=== PATIENT | female | born 1960 | race Caucasian/White ===

== ENCOUNTER → 2018-01-01 | Outpatient (CLI) | payer BC ==
--- NOTE | 2018-01-01 18:44 | Diagnostic Imaging Report ---
PROCEDURE: CT CHEST WITHOUT CONTRAST CT scan of the chest WITHOUT intravenous contrast, using standard protocol. TECHNIQUE: The chest was scanned utilizing a multidetector helical scanner from the apex to the level of the adrenal glands. No IV contrast was administered per physician's request. Coronal and sagittal multiplanar reformations were obtained. COMPARISON: None. INDICATIONS: COPD. SHORTNESS OF BREATH, SMOKER FINDINGS: Lines/tubes: None. Lungs and Airways: Moderate to marked centrilobular emphysematous changes, worse in the upper lobes. Multiple bilateral calcified granulomas, with the largest located in the superior segment of the right lower lobe and measuring 0.7 cm. No pulmonary nodules, masses, or consolidation. Focal scarring and associated bronchiectasis in the lateral lingula (series 3, image 97). Airways are clear, without endobronchial lesions. Pleura: No effusion, or pneumothorax. Heart and mediastinum: Thyroid is unremarkable. Heart size is normal. No pericardial effusion. Aorta is non-aneurysmal. Main pulmonary artery is normal in caliber. Atherosclerotic calcification of the coronary arteries and thoracic aortic arch. Lymph nodes: Multiple calcified mediastinal and bilateral hilar lymph nodes. No mediastinal, hilar, or axillary adenopathy. Abdomen: Limited views of the upper abdomen show no abnormality within the visualized liver, pancreas, or left kidney. Multiple calcified splenic granulomas. Visualized portions of the adrenal glands are normal. Bones: No aggressive lytic lesions. Mild degenerative disc changes in the thoracic spine. Bilateral breast implants. Partially visualized anterior fusion hardware in the lower cervical spine. IMPRESSION: 1. moderate to marked centrilobular emphysematous changes, worse in the upper lobes. No consolidation, pulmonary nodules or masses. 2. Multiple pulmonary and splenic calcified granulomas, as well as calcified mediastinal and hilar lymph nodes, consistent with prior granulomatous disease. Roman Bolden M.D. Dictated by: Roman Bolden M.D. on 01/01/2018 at 18:49 Electronically approved by: Roman Bolden M.D. on 01/01/2018 at 18:49
== END ==
LOC: RESP 14:29
PROVIDERS: ATTEND Internal Medicine
DX: J44.9 Chronic obstructive pulmonary disease, unspecified (principal); F17.200 Nicotine dependence, unspecified, uncomplicated
CPT/HCPCS: 71250; 94060; 94727; 94729